=== PATIENT | male | born 1965 | race Caucasian/White ===

== ENCOUNTER 2018-06-19 03:30 | Emergency (ER) | payer OTHER ==
[2018-06-19] MEDS ORDERED: PROMETHAZINE 25 MG/ML VIAL ONE (03:53)
[2018-06-19] MEDS ORDERED: MORPHINE 4 MG/ML SYR ONE ×2 (03:54→06:41)
[2018-06-19] MEDS ORDERED: NA CHLORIDE 0.9% 1,000 ML ONE (03:54)
[2018-06-19 04:54] LABS: Absolute Lymphocytes (CBC) 1.2 K/uL (0.7-4.9); Absolute Monocytes 0.8 K/uL (0.1-1.3); Absolute Neutrophil 5.6 K/uL (1.8-8.0); Basophils % 0.7 % (0-1.3); Eosinophils % 0.5 % (0-4.4); Lymphocytes % 15.7 % (15.3-44.8); MCH 31.4 pg (27.0-35.0); MCV 87.1 fL (80-100); MPV 8.6 fL (7.6-11.3); Monocytes % 10.1 % (3.3-12.3); RBC Red Blood Cell Count 4.59 M/uL (4.33-5.43)
[2018-06-19] MEDS ORDERED: ONDANSETRON 4 MG/2 ML VIAL ONE (05:07)
[2018-06-19 05:13] LABS: Albumin 3.7 g/dL (3.4-5.0); Bilirubin Direct 0.3 mg/dL (0-0.2); Bilirubin Total 1.2 mg/dL (0.2-1.0); Potassium 3.1 mmol/L (3.5-5.1); Protein, Total 7.7 g/dL (6.4-8.2)
[2018-06-19] MEDS ORDERED: HALOPERIDOL LACT 5 MG/ML INJ ONE (05:49)
--- NOTE | 2018-06-19 06:26 | EDPHYS ---
Physician Documentation [facility] Name: Obed Mcfadden Age: 53 yrs Sex: Male : 1965 Arrival Date: 06/19/2018 Time: 03:32 Bed 8 Private MD: ED Physician Jaswant Mcintyre HPI: 06/19 03:42 This 53 yrs old Male presents to ER via Unassigned with complaints of rn Abdominal Pain, Vomiting. 03:42 The patient presents to the emergency department with nausea, vomiting, abdominal pain, rn of the umbilical area. Onset: The symptoms/episode began/occurred 1 week(s) ago. Possible causes: unknown. Severity of symptoms: At their worst the symptoms were moderate in the emergency department the symptoms are unchanged. The patient has experienced a previous episode. The patient has been recently seen by a physician:. Reports just discharged from hospital in last couple of days, was in hospital out of town for a few days for these symptoms and unclear diagnosis, given phenergan and pain meds, states didn't feel better and left the hospital prior to all results. Now down here with mother, continues to throw up and have abd pain so came in for evaluation.. Historical: - Allergies: 03:43 No Known Allergies; ak1 - Home Meds: 03:43 Insulin: Novolin 70/30 Sub-Q [Active]; gabapentin 300 mg oral cap [Active]; [place] Oral ak1 PRN for Pain [Active]; - PMHx: 03:43 Diabetes - IDDM; ak1 - PSHx: 03:43 Cholecystectomy; Appendectomy; ak1 - Immunization history:: Adult Immunizations unknown. - Social history:: Smoking status: unknown. - Family history:: not pertinent. - Ebola Screening: : No symptoms or risks identified at this time. - Hospitalizations: : Patient was recently seen at. ROS: 03:42 Constitutional: Negative for fever, chills, and weight loss, Eyes: Negative for injury, rn pain, redness, and discharge, Neck: Negative for injury, pain, and swelling, Cardiovascular: Negative for chest pain, palpitations, and edema, Respiratory: Negative for shortness of breath, cough, wheezing, and pleuritic chest pain, Abdomen/GI: Negative for diarrhea, and constipation, MS/Extremity: Negative for injury and deformity, Skin: Negative for injury, rash, and discoloration, Neuro: Negative for headache, numbness, tingling, and seizure. Exam: 03:42 Constitutional: This is a well developed, well nourished patient who is awake, alert, rn appears uncomfortable Head/Face: Normocephalic, atraumatic. Eyes: Pupils equal round and reactive to light, extra-ocular motions intact. Lids and lashes normal. Conjunctiva and sclera are non-icteric and not injected. Cornea within normal limits. Periorbital areas with no swelling, redness, or edema. ENT: dry MM Cardiovascular: tachycardic, regular, no murmur Respiratory: Lungs have equal breath sounds bilaterally, clear to auscultation and percussion. No rales, rhonchi or wheezes noted. No increased work of breathing, no retractions or nasal flaring. Abdomen/GI: soft, + periumbilical tenderness, no reobund, no masses MS/ Extremity: Pulses equal, no cyanosis. Neurovascular intact. Full, normal range of motion. Equal circumference. Neuro: Awake and alert, GCS 15, oriented to person, place, time, and situation. Cranial nerves II-XII grossly intact. Motor strength 5/5 in all extremities. Sensory grossly intact. Vital Signs: 03:40 BP 184 / 112; Pulse 101; Resp 18; Temp 97.5(TE); Pulse Ox 100% on R/A; Weight 78.93 kg ak1 (R); Height 5 ft. 7 in. (170.18 cm) (R); Pain 10/10; 05:00 BP 183 / 115; Pulse 93; Resp 18; Pulse Ox 98% on R/A; lp1 05:50 BP 151 / 101; Pulse 94; Resp 18; Pulse Ox 98% on R/A; lp1 06:24 BP 175 / 92; Pulse 98; Resp 18; Pulse Ox 99% on R/A; mt 06:39 BP 163 / 94; Pulse 94; Resp 18; Pulse Ox 98% on R/A; lp1 03:40 Body Mass Index 27.25 (78.93 kg, 170.18 cm) ak1 MDM: 03:33 Patient medically screened. rn 06:23 Differential diagnosis: Nonspecific abd pain, gastritis, pancreatitis, diverticulitis, rn viral gastroenteritis, gastroenteritis. Data reviewed: vital signs, nurses notes, lab test result(s), radiologic studies, CT scan, and as a result, I will discharge patient. Counseling: I had a detailed discussion with the patient and/or guardian regarding: the historical points, exam findings, and any diagnostic results supporting the discharge/admit diagnosis, lab results, radiology results, the need for outpatient follow up, to return to the emergency department if symptoms worsen or persist or if there are any questions or concerns that arise at home. Response to treatment: the patient's symptoms have markedly improved after treatment, and as a result, I will discharge patient. Special discussion: Based on the patient's Hx, exam, and Dx evaluation, there is no indication for emergent surgery or inpatient Tx. It is understood by the patient/guardian that if the Sx's persist or worsen they need to return immediately for re-evaluation. I discussed with the patient/guardian in detail that at this point there is no indication for admission to the hospital. It is understood, however, that if the symptoms persist or worsen the patient needs to return immediately for re-evaluation. ED course: Pt markedly improved, sleeping and pain free, no longer vomiting, ct shows stone in bladder, bloodwork ok, will dc home with pain meds and nausea medication for remainder of passage. . 06/19 03:41 Order name: Basic Metabolic Panel; Complete Time: 05:15 rn 06/19 03:41 Order name: CBC with Diff; Complete Time: 05:08 rn 06/19 03:41 Order name: Hepatic Function; Complete Time: 05:15 rn 06/19 03:41 Order name: Lipase; Complete Time: 05:15 rn 06/19 03:41 Order name: IV Saline Lock; Complete Time: 03:59 rn 06/19 03:41 Order name: CT Abd/Pelvis - W/Contrast rn 06/19 03:41 Order name: Labs collected and sent; Complete Time: 05:27 rn Administered Medications: 03:55 Drug: Phenergan 25 mg Route: IVP; Site: right antecubital; ak1 04:40 Follow up: Response: Nausea unchanged lp1 03:55 Drug: morphine 4 mg Route: IVP; Site: right antecubital; ak1 04:40 Follow up: Response: Pain is decreased lp1 03:56 Drug: NS 0.9% 1000 ml Route: IV; Rate: 1000 ml; Site: right antecubital; ak1 04:50 Follow up: IV Status: Completed infusion ak1 05:07 Drug: Zofran 4 mg Route: IVP; Site: left upper arm; lp1 05:49 Follow up: Response: Nausea unchanged lp1 05:49 Drug: HALdol (as decanoate) 2 mg Route: IM; Site: right deltoid; lp1 06:32 Follow up: Response: No adverse reaction ak1 06:35 Drug: morphine 4 mg Route: IVP; Site: left upper arm; ak1 06:41 Follow up: Response: No adverse reaction; Medication administered at discharge. ak1 Disposition: 06/19/18 06:26 Discharged to Home. Impression: Kidney stone, Vomiting. - Condition is Stable. - Discharge Instructions: Kidney Stones, Nausea and Vomiting, Adult, Dietary Guidelines to Help Prevent Kidney Stones. - Prescriptions for Zofran ODT 4 mg Oral tablet,disintegrating - place 1 tablet by TRANSLINGUAL route every 8 hours As needed; 20 tablet. Tylenol- Codeine #3 300-30 mg Oral Tablet - take 1 tablet by ORAL route every 6 hours As needed; 15 tablet. - Medication Reconciliation Form, Thank You Letter, Antibiotic Education, Prescription Opioid Use form. - Follow up: Carolin Arroyo MD; When: As needed; Reason: Recheck today's complaints, Re-evaluation by your physician. - Problem is new. - Symptoms have improved. Signatures: Dispatcher [employer] EDMS Jaswant Mcintyre MD MD rn Pena, Laura, RN RN lp1 Sarah Sears RN RN ak1 Corrections: (The following items were deleted from the chart) 03:44 03:42 Constitutional: Negative for fever, chills, and weight loss, Eyes: Negative for rn injury, pain, redness, and discharge, Neck: Negative for injury, pain, and swelling, Cardiovascular: Negative for chest pain, palpitations, and edema, Respiratory: Negative for shortness of breath, cough, wheezing, and pleuritic chest pain, Abdomen/GI: Negative for diarrhea, and constipation, MS/Extremity: Negative for injury and deformity, Skin: Negative for injury, rash, and discoloration, Neuro: Negative for headache, weakness, numbness, tingling, and seizure, rn 04:45 03:41 Creatinine for Radiology+C.LAB.BRZ ordered. EDMS EDMS 06:32 03:41 Urine Dipstick-Ancillary ordered. elzbieta ak1 06:52 06:26 06/19/2018 06:26 Discharged to Home. Impression: Kidney stone; Vomiting. ak1 Condition is Stable. Forms are Medication Reconciliation Form, Thank You Letter, Antibiotic Education, Prescription Opioid Use. Follow up: Carolin Arroyo; When: As needed; Reason: Recheck today's complaints, Re-evaluation by your physician. Problem is new. Symptoms have improved. rn
--- NOTE | 2018-06-19 06:26 | ER ---
Nurse's Notes [facility] Name: Obed Mcfadden Age: 53 yrs Sex: Male : 1965 Arrival Date: 06/19/2018 Time: 03:32 Bed 8 Private MD: Diagnosis: Kidney stone;Vomiting Presentation: 06/19 03:41 Presenting complaint: Patient states: abd pain with N/V. pt discharged from hospital ak1 OOT on Saturday with no results or relief. pt stated his FSBG at home AEROLOGIST was 350. Transition of care: patient was not received from another setting of care. Onset of symptoms is unknown. Risk Assessment: Do you want to hurt yourself or someone else? Patient reports no desire to harm self or others. Care prior to arrival: None. 03:41 Method Of Arrival: Wheelchair ak1 03:41 Acuity: BERENICE 3 ak1 03:58 Initial Sepsis Screen: Does the patient meet any 2 criteria? No. Patient's initial lp1 sepsis screen is negative. Does the patient have a suspected source of infection? No. Patient's initial sepsis screen is negative. Triage Assessment: 03:44 General: Appears uncomfortable, Behavior is cooperative. Pain: Complains of pain in ak1 umbilical area. Historical: - Allergies: 03:43 No Known Allergies; ak1 - Home Meds: 03:43 Insulin: Novolin 70/30 Sub-Q [Active]; gabapentin 300 mg oral cap [Active]; [place] Oral ak1 PRN for Pain [Active]; - PMHx: 03:43 Diabetes - IDDM; ak1 - PSHx: 03:43 Cholecystectomy; Appendectomy; ak1 - Immunization history:: Adult Immunizations unknown. - Social history:: Smoking status: unknown. - Family history:: not pertinent. - Ebola Screening: : No symptoms or risks identified at this time. - Hospitalizations: : Patient was recently seen at. Screenin:44 Abuse screen: Denies threats or abuse. Denies injuries from another. Nutritional ak1 screening: No deficits noted. Tuberculosis screening: No symptoms or risk factors identified. Fall Risk None identified. Assessment: 03:56 General: Appears uncomfortable, Behavior is appropriate for age. Pain: Complains of lp1 pain in umbilical area, right lower quadrant and left lower quadrant Pain currently is 8 out of 10 on a pain scale. Quality of pain is described as sharp. Neuro: Level of Consciousness is awake, alert, obeys commands. Cardiovascular: Patient's skin is warm and dry. Respiratory: Respiratory effort is even, unlabored, Breath sounds are clear bilaterally. GI: Abdomen is non-distended, Bowel sounds present X 4 quads. Abdomen is tender to palpation in right lower quadrant and left lower quadrant Reports nausea, vomiting, Patient currently denies cramping, diarrhea. : No signs and/or symptoms were reported regarding the genitourinary system. EENT: No signs and/or symptoms were reported regarding the EENT system. Derm: Skin is intact, Skin is dry, Skin is normal. Musculoskeletal: Circulation, motion, and sensation intact. 04:00 Reassessment: Patient attempting to vomit, no emesis noted; States "I don't have any lp1 thing in my stomach"; Patient states he has not had anything to eat since Saturday. 05:10 Reassessment: Patient continuing to attempt to vomit, no emesis noted; Patient aware of lp1 oral contrast, states "every time I drink any, it comes right back up"; Provider aware. Vital Signs: 03:40 BP 184 / 112; Pulse 101; Resp 18; Temp 97.5(TE); Pulse Ox 100% on R/A; Weight 78.93 kg ak1 (R); Height 5 ft. 7 in. (170.18 cm) (R); Pain 10/10; 05:00 BP 183 / 115; Pulse 93; Resp 18; Pulse Ox 98% on R/A; lp1 05:50 BP 151 / 101; Pulse 94; Resp 18; Pulse Ox 98% on R/A; lp1 06:24 BP 175 / 92; Pulse 98; Resp 18; Pulse Ox 99% on R/A; mt 06:39 BP 163 / 94; Pulse 94; Resp 18; Pulse Ox 98% on R/A; lp1 03:40 Body Mass Index 27.25 (78.93 kg, 170.18 cm) ak1 ED Course: 03:32 Patient arrived in ED. am2 03:33 Jaswant Mcintyre MD is Attending Physician. rn 03:42 Triage completed. ak1 03:43 Arm band placed on Patient placed in an exam room, on a stretcher, on pulse oximetry, ak1 Patient notified of wait time. 03:44 Patient has correct armband on for positive identification. Placed in gown. Bed in low ak1 position. Call light in reach. Side rails up X2. Adult w/ patient. Pulse ox on. NIBP on. Warm blanket given. 03:56 Tianna Ruelas, RN is Primary Nurse. lp1 03:56 Inserted saline lock: 22 gauge in right antecubital area, using aseptic technique. lp1 04:30 IV discontinued, 22g IV to R AC DC'd due to infiltration. lp1 04:32 Missed attempt(s): 22 gauge in left forearm. lp1 05:05 Inserted 18 gauge 10 cm midline to left upper brachial vein on first attempt. Line with fc good blood return and flushes well. 05:[address] via stretcher. lp1 05:33 CT Abd/Pelvis - W/Contrast In Process Unspecified. EDMS 05:33 CT completed. Patient tolerated procedure well. eh 05:[address] moved back from CT. 06:25 Carolin Arroyo MD is Referral Physician. rn 06:39 No provider procedures requiring assistance completed. lp1 Administered Medications: 03:55 Drug: Phenergan 25 mg Route: IVP; Site: right antecubital; ak1 04:40 Follow up: Response: Nausea unchanged lp1 03:55 Drug: morphine 4 mg Route: IVP; Site: right antecubital; ak1 04:40 Follow up: Response: Pain is decreased lp1 03:56 Drug: NS 0.9% 1000 ml Route: IV; Rate: 1000 ml; Site: right antecubital; ak1 04:50 Follow up: IV Status: Completed infusion ak1 05:07 Drug: Zofran 4 mg Route: IVP; Site: left upper arm; lp1 05:49 Follow up: Response: Nausea unchanged lp1 05:49 Drug: HALdol (as decanoate) 2 mg Route: IM; Site: right deltoid; lp1 06:32 Follow up: Response: No adverse reaction ak1 06:35 Drug: morphine 4 mg Route: IVP; Site: left upper arm; ak1 06:41 Follow up: Response: No adverse reaction; Medication administered at discharge. ak1 Outcome: 06:26 Discharge ordered by . rn 06:42 Discharged to home via wheelchair, with family. ak1 06:42 Condition: improved 06:42 Discharge instructions given to patient, family, Instructed on discharge instructions, follow up and referral plans. no drinking with medication, no driving heavy equipment, medication usage, Demonstrated understanding of instructions, follow-up care, medications, Prescriptions given X 2. 06:52 Patient left the ED. ak1 Signatures: Dispatcher [employer] EDSaleem Robertson Felicia, RN RN Jaswant Pina MD MD rn Pena, Laura, RN RN lp1 Sarah Sears RN RN ak1 Tran Contreras Moriah id
--- NOTE | 2018-06-19 08:44 | RAD REPORT ---
EXAM DESCRIPTION: CTAbdomen Pelvis W Contrast - 06/19/2018 5:33 am CLINICAL HISTORY: Abdominal pain. Abd pain;Nausea / vomiting COMPARISON: No comparisons TECHNIQUE: Biphasic CT imaging of the abdomen and pelvis was performed with 100 ml non-ionic IV cont rast. All CT scans are performed using dose optimization technique as appropriate and may include automated exposure control or mA/KV adjustment according to patient size. FINDINGS: The lung bases are clear. Mild fatty liver is seen. Cholecystectomy clips are noted. The spleen, pancreas, adrenal glands are n ormal. Mild hydronephrosis suspected left kidney. Punctate calculus also suspected in the superior ca lyx left kidney. Tiny punctate calculi also likely present in several calices of right kidney. Calcul i along the course of either ureter are not seen. Small stones are seen layering in the urinary bladd er dependently. No bowel obstruction, free air, free fluid or abscess. Appendectomy. No evidence of significant lym phadenopathy. Fat containing inguinal hernias bilaterally. No suspicious bony findings. IMPRESSION: Punctate bilateral nephrolithiasis. Several small stones in the urinary bladder also see n. Mild residual hydronephrosis left kidney suspected, presumably from recent passage of a stone.
== END 2018-06-19 06:52 | disposition home or self-care (01) ==
LOC: ER 03:30
DX: N20.0 Calculus of kidney (principal); E11.9 Type 2 diabetes mellitus without complications; Z79.4 Long term (current) use of insulin
CPT/HCPCS: 36415; 74177; 80048; 80076; 83690; 85025; 96372; 99284; J1630; J2405; J2550; J7030; Q9967; 96374